=== PATIENT | male | born 1965 | race African-American/Black ===

== ENCOUNTER → 2017-10-24 | Day surgery (SDC) | payer BC ==
[~2017-10-24] MED LIST: BUPIVACAINE HCL 0.5 % INJ/PF 30 ML SDV ONE; METHYLPREDNISOLONE ACETATE INJ 40 MG/1 ML ML ONE
--- NOTE | 2017-10-24 14:09 | RADIOLOGY REPORT (SQ) ---
EXAM DESCRIPTION: INJECT/ASPIR HIP/SHLDR/KNEE; FLUORO/NEEDLE PLACEMENT COMPLETED DATE/TIME: 10/24/2017 1:50 pm REASON FOR STUDY: PAIN IN LEFT SHOULDER M25.512 PAIN IN LEFT SHOULDER M19.012 PRIMARY OSTEOARTHRIT IS, LEFT SHOULDER COMPARISON: None. FLUOROSCOPY TIME: 10 seconds 1 digital radiographic images saved to PACS. LIMITATIONS: None. PROCEDURE: SITE OF INJECTION: Left posterior glenohumeral joint LOCALIZING CONTRAST TYPE AND DOSE: 1 mL of Isovue-300 was injected to confirm intra-articular needle placement MEDICATION TYPE AND DOSE: 80 mg of Depo-Medrol, 5 mL of 0.5% bupivacaine Using local anesthesia and sterile technique with fluoroscopic guidance, the needle was advanced into the joint. Iodinated contrast was injected to verify intraarticular placement. This was followed by therapeutic injection of the indicated medications. The needle was removed. There were no immediat e complications. Preprocedure pain level: 5/10. Postprocedure pain level: 1/10. IMPRESSION: THERAPEUTIC INJECTION OF THE LEFT SHOULDER JOINT ABOVE. COMMENT: Patient medication list reviewed: Yes- Quality ID# [id number]:Eligible professional attests to doc umenting in the medical record they obtained, updated, or reviewed the patient's current medications. . Quality ID 145: Final reports for procedures using fluoroscopy that document radiation exposure scott jose de jesus, or exposure time and number of fluorographic images (if radiation exposure indices are not avail able) TECHNICAL DOCUMENTATION: JOB ID: [id number] [employer]- All Rights Reserved Reading location - IP/workstation name: [email or web address]
--- NOTE | 2017-10-24 14:09 | RADIOLOGY REPORT (SQ) ---
EXAM DESCRIPTION: INJECT/ASPIR HIP/SHLDR/KNEE; FLUORO/NEEDLE PLACEMENT COMPLETED DATE/TIME: 10/24/2017 1:50 pm REASON FOR STUDY: PAIN IN LEFT SHOULDER M25.512 PAIN IN LEFT SHOULDER M19.012 PRIMARY OSTEOARTHRIT IS, LEFT SHOULDER COMPARISON: None. FLUOROSCOPY TIME: 10 seconds 1 digital radiographic images saved to PACS. LIMITATIONS: None. PROCEDURE: SITE OF INJECTION: Left posterior glenohumeral joint LOCALIZING CONTRAST TYPE AND DOSE: 1 mL of Isovue-300 was injected to confirm intra-articular needle placement MEDICATION TYPE AND DOSE: 80 mg of Depo-Medrol, 5 mL of 0.5% bupivacaine Using local anesthesia and sterile technique with fluoroscopic guidance, the needle was advanced into the joint. Iodinated contrast was injected to verify intraarticular placement. This was followed by therapeutic injection of the indicated medications. The needle was removed. There were no immediat e complications. Preprocedure pain level: 5/10. Postprocedure pain level: 1/10. IMPRESSION: THERAPEUTIC INJECTION OF THE LEFT SHOULDER JOINT ABOVE. COMMENT: Patient medication list reviewed: Yes- Quality ID# [id number]:Eligible professional attests to doc umenting in the medical record they obtained, updated, or reviewed the patient's current medications. . Quality ID 145: Final reports for procedures using fluoroscopy that document radiation exposure scott jose de jesus, or exposure time and number of fluorographic images (if radiation exposure indices are not avail able) TECHNICAL DOCUMENTATION: JOB ID: [id number] [employer]- All Rights Reserved Reading location - IP/workstation name: [email or web address]
== END ==
LOC: RAD 13:03
PROVIDERS: ATTEND Physician Assistant
DX: M25.512 Pain in left shoulder (principal); M19.012 Primary osteoarthritis, left shoulder
CPT/HCPCS: 20610; 77002; J3490; J1020

== ENCOUNTER → 2019-05-05 | Outpatient (CLI) | payer OTHER, BC ==
[2019-05-05 09:45] LABS: ABSOLUTE EOSINOPHILS # (AUTO) 0.1 10^3/uL (0.0-0.6); ABSOLUTE LYMPHOCYTES (AUTO) 1.7 10^3/uL (0.5-4.7); ABSOLUTE MONOCYTES (AUTO) 0.8 10^3/uL (0.1-1.4); ABSOLUTE NEUT (AUTO) 4.1 10^3/uL (1.7-8.2); BASOPHILS % (AUTO) 0.6 % (0-2); EOSINOPHILS % (AUTO) 0.8 % (0-6); HEMATOCRIT 46.9 % (37.9-51.0); LYMPHOCYTES % (AUTO) 25.1 % (13-45); MEAN CORPUSCULAR HEMOGLOBIN 28.2 pg (27.0-33.4); MEAN CORPUSCULAR VOLUME 83 fl (80-97); MONOCYTES % (AUTO) 11.5 % (3-13); PLATELET COUNT 228 10^3/uL (150-450); RED BLOOD COUNT 5.66 10^6/uL (4.35-5.55); RED CELL DISTRIBUTION WIDTH 14.1 % (11.5-14.0); TOTAL CELLS COUNTED % (AUTO) 100 %; WHITE BLOOD COUNT 6.6 10^3/uL (4.0-10.5)
--- NOTE | 2019-05-05 09:45 | RADIOLOGY REPORT (SQ) ---
EXAM DESCRIPTION: CHEST PA/LATERAL COMPLETED DATE/TIME: 05/05/2019 9:22 am REASON FOR STUDY: PRE-OP COMPARISON: None. EXAM PARAMETERS: NUMBER OF VIEWS: two views TECHNIQUE: Digital Frontal and Lateral radiographic views of the chest acquired. RADIATION DOSE: NA LIMITATIONS: none FINDINGS: LUNGS AND PLEURA: No consolidation, pleural effusion or pneumothorax. MEDIASTINUM AND HILAR STRUCTURES: No mediastinal or hilar contour abnormality. HEART AND VASCULAR STRUCTURES: The cardiac silhouette and pulmonary vasculature are within normal clancy its. BONES: No acute findings. HARDWARE: None in the chest. OTHER: No other finding. IMPRESSION: No acute cardiopulmonary process. TECHNICAL DOCUMENTATION: JOB ID: [id number] [employer]- All Rights Reserved Reading location - IP/workstation name: [email or web address]
[2019-05-05 09:52] LABS: APPEARANCE,URINE CLEAR; BILIRUBIN,URINE NEGATIVE (NEGATIVE); COLOR,URINE YELLOW; GLUCOSE, URINE NEGATIVE (NEGATIVE); KETONES,URINE NEGATIVE (NEGATIVE); LEUKOCYTE ESTERASE,URINE NEGATIVE (NEGATIVE); NITRITE,URINE NEGATIVE (NEGATIVE); PROTEIN,URINE NEGATIVE (NEGATIVE); URINE SPECIFIC GRAVITY 1.016; UROBILINOGEN,URINE NEGATIVE mg/dL (<2.0)
[2019-05-05 10:13] LABS: ANION GAP 13 (5-19); BLOOD UREA NITROGEN 8 mg/dL (7-20); CALCIUM 9.8 mg/dL (8.4-10.2); CARBON DIOXIDE 28 mmol/L (22-30); CHLORIDE 101 mmol/L (98-107); GLUCOSE 90 mg/dL (75-110); POTASSIUM 4.3 mmol/L (3.6-5.0)
--- NOTE | 2019-05-05 12:17 | EKG REPORT ---
SEVERITY:- BORDERLINE ECG - SINUS RHYTHM BORDERLINE T ABNORMALITIES, LATERAL LEADS : Confirmed by: Jeff Gómez MD 05-May-2019 12:16:55
== END ==
LOC: OD 08:45
PROVIDERS: ATTEND Orthopaedic Surgery
DX: Z01.810 Encounter for preprocedural cardiovascular examination (principal); Z01.811 Encounter for preprocedural respiratory examination; Z01.812 Encounter for preprocedural laboratory examination; M25.512 Pain in left shoulder; I10 Essential (primary) hypertension
CPT/HCPCS: 36415; 71046; 80048; 81001; 85025; 93005; 93010

== ENCOUNTER 2019-06-01 05:50 | Observation (INO) | payer OTHER, BC ==
[~2019-06-01 05:50] MED LIST changes: -BUPIVACAINE HCL 0.5 % INJ/PF 30 ML SDV ONE; +BUPIVACAINE INJ/PF LIPOSOME/PF 266 MG/20 ML SDV INJ PRN; +CEFAZOLIN INJ 1 GM VIAL IV PRN; +IBUPROFEN 800 MG in NORMAL SALINE 250 ML IV PRN; +LACTATED RINGERS 1000 ML IV PRN; +LIDOCAINE 0.5% INJ-PF (5 MG/ML) 50 ML SDV SUBCUT PRN; -METHYLPREDNISOLONE ACETATE INJ 40 MG/1 ML ML ONE; +OXYCODONE HCL SR 10 MG TABLET PO PRN; +PANTOPRAZOLE SODIUM 20 MG TABLET.DR PO PRN; +VANCOMYCIN HCL 1,000 MG in DEXTROSE 5%-WATER 250 ML IV PRN
[2019-06-01] MEDS ORDERED: FENTANYL CITRATE INJ/PF 250 MCG/5 ML AMPULE ONE (06:53)
[2019-06-01] MEDS ORDERED: HYDROMORPHONE HCL INJ/PF 2 MG/ML AMPULE ONE (06:54)
[2019-06-01] MEDS ORDERED: PROPOFOL INJ 200 MG/20 ML VIAL IV ONE (06:54)
[2019-06-01] MEDS ORDERED: MIDAZOLAM 2 MG/2 ML INJ ONE (06:54)
[2019-06-01] MEDS ORDERED: PANTOPRAZOLE SODIUM 20 MG TABLET.DR PO ONE (06:56)
[2019-06-01] MEDS ORDERED: CEFAZOLIN INJ 1 GM VIAL ONE ×2 (06:56→12:21)
[2019-06-01] MEDS ORDERED: OXYCODONE HCL SR 10 MG TABLET PO ONE (06:56)
[2019-06-01] MEDS ORDERED: DEXMEDETOMIDINE INJ 80 MCG/20 ML VIAL IV ONE (07:35)
[2019-06-01] MEDS ORDERED: TRANEXAMIC ACID INJ/PF 1,000 MG/10 ML SDV ONE (07:54)
[2019-06-01] MEDS ORDERED: EPINEPHRINE INJ/PF 1 MG/1 ML AMPULE ONE (10:51)
[2019-06-01] MEDS ORDERED: MEPERIDINE HCL/PF INJ 25 MG/1 ML DISP.SYRIN IV PRN (10:55)
[2019-06-01] MEDS ORDERED: MORPHINE SULFATE 10 MG/ML INJ IV PRN ×5 (10:55→13:38)
[2019-06-01] MEDS ORDERED: PROMETHAZINE HCL INJ 25 MG/1 ML VIAL IV PRN (10:55)
[2019-06-01] MEDS ORDERED: ONDANSETRON HCL INJ/PF 4 MG/2 ML SDV IV PRN (10:55)
[2019-06-01] MEDS ORDERED: DIPHENHYDRAMINE HCL 50 MG/ML VIAL IV PRN ×2 (10:55→13:38)
[2019-06-01] MEDS ORDERED: FENTANYL CITRATE INJ/PF 100 MCG/2 ML AMPUL IV PRN (10:55)
[2019-06-01 11:13] LABS: HEMATOCRIT 39.2 % (37.9-51.0); HEMOGLOBIN 13.4 g/dL (13.5-17.0); MEAN CORPUSCULAR HEMOGLOBIN 28.4 pg (27.0-33.4); MEAN CORPUSCULAR HGB CONC 34.2 g/dL (32.0-36.0); MEAN CORPUSCULAR VOLUME 83 fl (80-97); PLATELET COUNT 210 10^3/uL (150-450); RED BLOOD COUNT 4.72 10^6/uL (4.35-5.55); WHITE BLOOD COUNT 9.8 10^3/uL (4.0-10.5)
[2019-06-01] MEDS ORDERED: VANCOMYCIN HCL INJ 1000 MG VIAL ONE (12:30)
[2019-06-01] MEDS ORDERED: BUPIVACAINE INJ/PF LIPOSOME/PF 266 MG/20 ML SDV ONE (12:31)
[2019-06-01] MEDS ORDERED: OXYCODONE HCL IR 5 MG TABLET PO PRN (13:38)
[2019-06-01] MEDS ORDERED: ONDANSETRON 4 MG TAB.RAPDIS PO PRN (13:38)
--- NOTE | 2019-06-01 13:57 | Operative Report ---
Operative Report DATE OF SURGERY: 06/01/19 PREOPERATIVE DIAGNOSIS: Left shoulder osteoarthritis POSTOPERATIVE DIAGNOSIS: Same OPERATION: Left total shoulder arthroplasty SURGEON: VEL KAUFMAN ANESTHESIA: GA COMPLICATIONS: None ESTIMATED BLOOD LOSS: 700cc PROCEDURE: Indication for above procedure: 54-year-old male with longstanding history of left glenohumeral osteoarthritis. Tends to consider management with anti-inflammatories and injection without resolution of patient's symptoms. At that point discussion was had including operative interventions. Risks and benefits of total shoulder arthroplasty were explained patient verbalized understanding consented for surgical procedure. Procedure In Detail: Patient was seen and evaluated in the preoperative holding area. The LEFT upper extremity was initialized and marked. Patient received 2g of Ancef IV for bacterial prophylaxis. Patient was taken back to the operative room where transferred to the operative table and placed under general anesthesia. Once they were adequately anesthetized patient placed in the beachchair position. Cervical spine was placed in neutral position all bony prominences were padded including nonoperative upper extremity and bilateral lower extremity. A surgical team debriefing was performed ensuring all instrumentation was available, the surgical procedure was discussed with possible concerns reviewed. The upper extremity was prepped with ChloraPrep draped in a sterile fashion. A timeout was done identifying correct patient, procedure and extremity everyone in attendance agree with this and verbalized no concerns. Deltopectoral incision was made medial to the AC joint to the superior lateral aspect of the humerus. Blunt dissection was performed cephalic vein was identified small tributaries medially were coagulated with cautery and retracted. Deltopectoral interval was utilized clavicle pectoral fascia was identified adjacent to the conjoined tendon. Conjoint tendon was then retracted along with the deltoid laterally. Small space superior lateral along the deltoid was established to place self-retaining retractor. Any peripheral veins were coagulated with cautery. Biceps tendon was then isolated and tenodesis was performed. Axillary nerve was palpated to ensure protection throughout the case. Proximal 1 cm of the pectoralis major tendon was released to provide further exposure. Circumflex vessels were then tied off and coagulated. Subscapularis was then peeled from the lesser tuberosity and tagged. Medial capsular release was performed to adequately expose the glenoid. Approximately two thirds of the glenoid was exposed after anterior release. Attention then turned to preparation of the humerus. Guide was secured into position and bone cut was made avoiding encroachment on the greater tuberosity. A size 7 coke handling supervisor was utilized. Broaching began with a size 6 broach at anteversion between 20-40 degrees. Broaching continued up to a size 10 broach with good fit. The humerus was then capped and attention then turned to the glenoid. The posterior capsule was then released while protecting the axillary nerve. Adequate release was then obtained however patient's muscular mass did require somewhat more extensive capsular release to obtain adequate exposure. Remaining aspect of the superior labrum and biceps was excised until entire glenoid was visualized. The glenoid VIP guide was then secured and drill pin placed as per preoperative template. First reamer was utilized to ream the cartilage down to subchondral bone. Cannulated drill was placed and advanced to stop. The glenoid guide was then applied and drilled superiorly and inferiorly. The punch was then utilized to complete preparation. Wound was copiously irrigated with normal saline. Initially cement was prepared however it was inappropriate consistency and thus further cement mixing was required. While cement was mixed epinephrine soaked sponge was placed in the glenoid. The superior and inferior holes were pressurized with cement x3. Cancellus bone from the humeral head was utilized to pack around the central glenoid peg. Size large Arthrex glenoid was then implanted into position and secured until cement was set. There was good stability of the glenoid attention then turned to the humerus. Shoulder was then trialed utilizing a size 10 humerus and 52 head there was good stability with 14-50-31-rule with external rotation to 60 degrees without subluxation. 2 longitudinal drill holes were placed through the biceps tuberosity. Thus a size 10 Arthrex universal II humeral stem was implanted. Prior to implantation FiberWire was placed through the appropriate holes for subscapularis repair. The abduction and rotation pegs were secured. Trial implant once again utilized to ensure adequate stability with greater than 40 degrees of extra rotation at neutral, 50% bounce back at neutral and 60 degrees of internal rotation with the shoulder at abduction. Subscapularis was repaired utilizing the Arthrex subscapularis repair system through the humeral implant. At completion patient had greater than 60 degrees of external rotation without instability or stress at the repair site. Rotator interval was then closed with interrupted 2-0 FiberWire. Wound was intermittently irrigated with pulse lavage throughout the entirety of the case. Vancomycin powder was placed after subscapularis repair. There is no significant bleeding at the completion of the case. 40 cc of Exparel mixture was injected for postoperative pain control. The deltopectoral interval was then closed with interrupted #1 and 0 Vicryl suture. Subcutaneous tissues were closed with interrupted 3-0 Monocryl suture. Skin was closed with mariano. Wound was dressed with Acticoat and a OpSite dressing. Sponge counts, instrument counts, needle counts were correct. Patient was then awoken from anesthesia. Transferred from the operating room table to the operating room stretcher. There was no intraoperative complications patient tolerated procedure well stable to PACU. Postoperative plan: Patient will be started on Xarelto inpatient and then transition to aspirin for DVT prophylaxis at home. We will begin physical therapy 4 weeks postoperatively as per total shoulder arthroplasty protocol. Implants: Arthrex universal vault lock glenoid large Universe apex humeral stem 10 mm Arthrex universe II humeral head 52/22
[2019-06-01 14:35] LABS: HEMATOCRIT 35.6 % (37.9-51.0); HEMOGLOBIN 11.9 g/dL (13.5-17.0); MEAN CORPUSCULAR HEMOGLOBIN 28.2 pg (27.0-33.4); MEAN CORPUSCULAR HGB CONC 33.4 g/dL (32.0-36.0); MEAN CORPUSCULAR VOLUME 84 fl (80-97); PLATELET COUNT 201 10^3/uL (150-450); RED BLOOD COUNT 4.22 10^6/uL (4.35-5.55); WHITE BLOOD COUNT 13.8 10^3/uL (4.0-10.5)
[2019-06-01] MEDS ORDERED: PHENYLEPHRINE HCL INJ/PF 10 MG/1 ML SDV ONE (14:49)
[2019-06-01] MEDS ORDERED: LIDOCAINE 2% INJ-PF (20 MG/ML) 2 ML AMPUL ONE (14:49)
[2019-06-01] MEDS ORDERED: GLYCOPYRROLATE 1 MG/5 ML VIAL ONE (14:49)
[2019-06-01] MEDS ORDERED: ONDANSETRON HCL INJ/PF 4 MG/2 ML SDV ONE (14:49)
[2019-06-01] MEDS ORDERED: ROCURONIUM BROMIDE INJ 50 MG/5 ML VIAL IV ONE (14:49)
[2019-06-01] MEDS ORDERED: SUCCINYLCHOLINE CHLORIDE INJ 200 MG/10 ML VIAL ONE (14:49)
[2019-06-01] MEDS ORDERED: NEOSTIGMINE METHYLSULFATE 10 MG/10 ML VIAL ONE (14:49)
--- NOTE | 2019-06-01 15:16 | RADIOLOGY REPORT (SQ) ---
EXAM DESCRIPTION: SHOULDER LEFT 2 OR MORE VIEWS COMPLETED DATE/TIME: 06/01/2019 3:04 pm REASON FOR STUDY: s/p TSA M25.512 PAIN IN LEFT SHOULDER COMPARISON: None. NUMBER OF VIEWS: Two view(s). TECHNIQUE: Digital radiographic images of the left shoulder post-procedure. LIMITATIONS: None. FINDINGS: BONES: No worrisome or unexpected findings post-procedure. DEVICE: Shoulder arthroplasty. SOFT TISSUES: No worrisome findings. Expected postoperative soft tissue changes. IMPRESSION: SATISFACTORY POSTOPERATIVE LEFT SHOULDER. TECHNICAL DOCUMENTATION: JOB ID: [id number] [employer]- All Rights Reserved Reading location - IP/workstation name: [email or web address]
[2019-06-01] MEDS: CLONAZEPAM 1 MG TABLET PO SCH ×2 (15:44→17:30)
[2019-06-01] MEDS ORDERED: RIVAROXABAN 10 MG TABLET PO SCH (17:00)
[2019-06-01] MEDS: PREGABALIN 75 MG CAPSULE PO SCH (17:30)
[2019-06-01] MEDS ORDERED: CEFAZOLIN 2 GM/D5W RTU 2 GM/50 ML RTUPB IV SCH (18:00)
[2019-06-01] MEDS ORDERED: ACETAMINOPHEN 1,000 MG/100 ML RTUPB IV ONE (19:38)
[2019-06-01] MEDS: CEFAZOLIN SODIUM 2 GM in DEXTROSE 5%-WATER 100 ML IV SCH (21:32)
[2019-06-01] MEDS: OXYCODONE HCL SR 10 MG TABLET PO SCH (21:33)
[2019-06-02] MEDS: CEFAZOLIN SODIUM 2 GM in DEXTROSE 5%-WATER 100 ML IV SCH ×2 (01:59→05:58)
[2019-06-02 04:58] LABS: HEMATOCRIT 37.9 % (37.9-51.0); HEMOGLOBIN 12.6 g/dL (13.5-17.0); MEAN CORPUSCULAR HEMOGLOBIN 28.1 pg (27.0-33.4); MEAN CORPUSCULAR HGB CONC 33.3 g/dL (32.0-36.0); MEAN CORPUSCULAR VOLUME 84 fl (80-97); PLATELET COUNT 196 10^3/uL (150-450); RED CELL DISTRIBUTION WIDTH 14.3 % (11.5-14.0); WHITE BLOOD COUNT 12.3 10^3/uL (4.0-10.5)
[2019-06-02 05:18] LABS: ANION GAP 8 (5-19); BLOOD UREA NITROGEN 8 mg/dL (7-20); CALCIUM 8.9 mg/dL (8.4-10.2); CARBON DIOXIDE 29 mmol/L (22-30); CHLORIDE 101 mmol/L (98-107); GLUCOSE 125 mg/dL (75-110)
[2019-06-02 05:19] LABS: POTASSIUM 3.7 mmol/L (3.6-5.0)
[2019-06-02] MEDS ORDERED: PANTOPRAZOLE SODIUM 40 MG TABLET.DR PO SCH (06:00)
--- NOTE | 2019-06-02 06:52 | PDOC DISCHARGE SUMMARY ---
Impression - Admit/DC Date/PCP Admission Date/Primary Care Provider: MICK TAY MD Discharge Date: 06/02/19 - Additional Information Resuscitation Status: Full Code Discharge Diet: As Tolerated Discharge Activity: No Lifting Over 10 Pounds, No Lifting/Push/Pulling Referrals: MICK TAY MD [Primary Care Provider] - Home Medications: Clonazepam 0.5 mg PO TID 05/12/19 Ibuprofen [Ibu] 800 mg PO Q6HP PRN 05/12/19 Naproxen/Esomeprazole Mag [Vimovo Dr 500-20 mg Tablet] 1 tab PO BID 05/12/19 Prazosin HCl 5 mg PO DAILY 05/12/19 Sumatriptan Succinate [Imitrex 25 mg Tablet] 25 mg PO ASDIR PRN 06/01/19 History of Present Illiness History of Present Illness: NATALIIA DOZIER JR is a 54 year old male Longstanding history of left shoulder discomfort. Conservative management was attempted including injections and anti-inflammatories without resolution of patient's symptoms. Radiographs confirmed osteoarthritis of the left shoulder at that point decision was made to proceed with operative intervention. Hospital Course Hospital Course: Patient underwent left total shoulder arthroplasty on 06/01/2019. Patient tolerated procedure well. There was moderate intraoperative blood loss postoperative H&H remained stable throughout his hospital course. Pain was controlled on postop day #1 and patient was doing well without complaints. At that point decision was made for discharge to home. Physical Exam Vital Signs: Temp Pulse Resp BP Pulse Ox 98.7 F 45 L 18 140/70 H 95 06/02/19 00:00 06/02/19 00:00 06/02/19 00:00 06/02/19 00:00 06/02/19 04:34 Pulse Oximeter Continuous Start: 06/01/19 15:19 Freq: RTQ4 Status: Active Protocol: Document 06/02/19 04:34 CMI (Rec: 06/02/19 04:42 CMI [id number]) Pulse Oximetry Assessment Oxygen Saturation (92-100) 95 Oxygen Delivery Method Room Air Fraction of Inspired Oxygen (FIO2) 21 Equipment Usage Equipment in Use Continuous SpO2 Machine # 5 Intake & Output 05/31/19 06/01/19 06/02/19 06:59 06:59 06:59 Intake Total 0 8091 Output Total 5610 Balance 0 2481 Weight 127.91 kg 323.5 kg General appearance: PRESENT: no acute distress, well-developed, well-nourished Head exam: PRESENT: atraumatic, normocephalic Eye exam: PRESENT: conjunctiva pink, EOMI, PERRLA. ABSENT: scleral icterus Ear exam: PRESENT: normal external ear exam Mouth exam: PRESENT: moist, tongue midline Neck exam: ABSENT: carotid bruit, JVD, lymphadenopathy, thyromegaly Respiratory exam: PRESENT: clear to auscultation farhad. ABSENT: rales, rhonchi, wheezes Cardiovascular exam: PRESENT: RRR. ABSENT: diastolic murmur, rubs, systolic murmur Pulses: PRESENT: normal dorsalis pedis pul Vascular exam: PRESENT: normal capillary refill GI/Abdominal exam: PRESENT: normal bowel sounds, soft. ABSENT: distended, guarding, mass, organolmegaly, rebound, tenderness Rectal exam: PRESENT: deferred Extremities exam: PRESENT: full ROM. ABSENT: calf tenderness, clubbing, pedal edema Musculoskeletal exam: PRESENT: other - Left shoulder: Dressing clean/dry/intact no erythema or drainage. Full wrist range of motion. No sensory deficits. Radial pulse 2+. Neurological exam: PRESENT: alert, awake, oriented to person, oriented to place, oriented to time, oriented to situation, CN II-XII grossly intact. ABSENT: motor sensory deficit Psychiatric exam: PRESENT: appropriate affect, normal mood. ABSENT: homicidal ideation, suicidal ideation Skin exam: PRESENT: dry, intact, warm. ABSENT: cyanosis, rash Results Laboratory Results: WBC 12.3 10^3/uL (4.0-10.5) H 06/02/19 04:35 RBC 4.50 10^6/uL (4.35-5.55) 06/02/19 04:35 Hgb 12.6 g/dL (13.5-17.0) L 06/02/19 04:35 Hct 37.9 % (37.9-51.0) 06/02/19 04:35 MCV 84 fl (80-97) 06/02/19 04:35 MCH 28.1 pg (27.0-33.4) 06/02/19 04:35 MCHC 33.3 g/dL (32.0-36.0) 06/02/19 04:35 RDW 14.3 % (11.5-14.0) H 06/02/19 04:35 Plt Count 196 10^3/uL (150-450) 06/02/19 04:35 Sodium 138.1 mmol/L (137-145) 06/02/19 04:35 Potassium 3.7 mmol/L (3.6-5.0) 06/02/19 04:35 Chloride 101 mmol/L (98-107) 06/02/19 04:35 Carbon Dioxide 29 mmol/L (22-30) 06/02/19 04:35 Anion Gap 8 (5-19) 06/02/19 04:35 BUN 8 mg/dL (7-20) 06/02/19 04:35 Creatinine 0.99 mg/dL (0.52-1.25) 06/02/19 04:35 Est GFR ( Amer) > 60 (>60) 06/02/19 04:35 Est GFR (MDRD) Non-Af > 60 (>60) 06/02/19 04:35 Glucose 125 mg/dL (75-110) H 06/02/19 04:35 POC Glucose 132 mg/dL (70-110) H 06/01/19 13:53 Hemoglobin A1c % 6.0 % (4.7-6.0) 06/01/19 07:00 Calcium 8.9 mg/dL (8.4-10.2) 06/02/19 04:35 Blood Type B POSITIVE 06/01/19 07:00 Antibody Screen NEGATIVE 06/01/19 07:00 Impressions: Shoulder X-Ray 06/01/19 00:00 IMPRESSION: SATISFACTORY POSTOPERATIVE LEFT SHOULDER. Plan Plan of Treatment: Patient progressed probably throughout hospital course. Will receive therapy on final postoperative day begin ambulation. Patient also begin elbow, wrist and hand range of motion. Prescriptions have been given for oxycodone and aspirin for DVT prophylaxis. Patient has progressed appropriate throughout hospital course and on 06/02/2019 orthopedically stable for discharge to home. Stroke Is this a Stroke Patient?: No Acute Heart Failure - Is this a Heart Failure Patient?: No
[2019-06-02 09:08] VITALS: BP 140/70
[2019-06-02] MEDS: CLONAZEPAM 1 MG TABLET PO SCH (09:28)
[2019-06-02] MEDS: PREGABALIN 75 MG CAPSULE PO SCH (09:29)
[2019-06-02] MEDS: OXYCODONE HCL SR 10 MG TABLET PO SCH (09:29)
[2019-06-02] MEDS ORDERED: (PENDING PHARMACY ID) (Prazosin Hcl [Prazosin Hcl] 5 MG) PO SCH ×3 (10:00→11:00)
== END 2019-06-02 10:00 | disposition home or self-care (01) ==
LOC: OROUT 05:50 → EDSTATUS 11:00 → 4W 13:35 → OROUT 15:09 → 4W 06-02 10:00
PROVIDERS: ADMIT Orthopaedic Surgery; ATTEND Orthopaedic Surgery
DX: M19.012 Primary osteoarthritis, left shoulder (principal); M06.9 Rheumatoid arthritis, unspecified; I10 Essential (primary) hypertension; F41.9 Anxiety disorder, unspecified; Z79.899 Other long term (current) drug therapy; Z79.1 Long term (current) use of non-steroidal anti-inflammatories (NSAID)
CPT/HCPCS: 86900; 86901; 36415 ×2; 86850; 82962; 85027 ×2; 80048; 83036; 73030; 94799; 94762 ×2; 97530; 97161; 97166; 01630; 23472; G0378 ×2; L3650; C1713 ×2; C1776 ×2; J2250; J0690 ×2; J3490 ×7; J0171; J3010; J2270; J2710; J2370; J0330; J2405; J7060 ×2; J7050; J2704; J3370; C9290; J1741; J1170